=== PATIENT | female | born 1995 | race Caucasian/White ===

== ENCOUNTER 2020-01-08 15:08 | Emergency (ER) | payer OTHER, MEDICAID, SELFPAY ==
[2020-01-08] VITALS (9 sets, daily range): BP systolic 100–140; BP diastolic 60–82; PULSE 54–138; RESP 16–18; TEMP 36.8–36.9; O2SAT 98–100; BMI 28.3
[2020-01-08 15:50] LABS: Add Manual Diff / Slide Review NO; Basophils Absolute Auto 100 /uL (0-100); Eosinophils Absolute Auto 100 /uL (0-450); Hematocrit 42.5 % (36-46); Hemoglobin 14.2 g/dL (12.0-16.0); Lymphocytes Absolute Auto 2400 /uL (1100-4500); Lymphocytes Percent Auto 34.1 % (25-40); Mean Corpuscular HGB Conc 33.4 % (30-36); Mean Corpuscular Hemoglobin 29.5 PG (26-34); Mean Corpuscular Volume 88.3 fL (80-100); Monocytes Absolute Auto 500 /uL (0-900); Monocytes Percent Auto 6.5 % (3-14); Neutrophils Absolute Auto 4100 /uL (1500-7000); Neutrophils Percent Auto 57.4 % (50-75); Platelet Count 243 X10^3/uL (150-400); Red Blood Cell Count 4.81 X10^6/uL (4.0-5.2); Red Cell Distribution Width 12.7 % (11.6-14.8); White Blood Cell Count 7.1 X10^3/uL (4.5-11.0)
[2020-01-08 16:01] LABS: Prothrombin Time 11.2 SECONDS (10.1-12.7)
[2020-01-08 16:04] LABS: PTT Partial Thromboplastin Tim 20 SECONDS (26.4-36.2)
[2020-01-08 16:06] LABS: Alanine Aminotransferase 20 IU/L (<35); Albumin 4.7 g/dL (3.5-5.0); Albumin Globulin Ratio 1.5 (1.0-2.8); Alkaline Phosphatase 29 U/L (38-126); Aspartate Aminotransferase 38 IU/L (14-36); BUN Creatinine Ratio 16.7 (6-22); Bilirubin Total 0.7 mg/dL (0.2-1.3); Blood Urea Nitrogen 13 mg/dL (7-17); Calcium 9.5 mg/dL (8.4-10.2); Carbon Dioxide 26 mmol/L (22-32); Chloride 106 mmol/L (98-107); Estimated Glomerular Filt Rate > 60.0 mL/min (>60); Globulin 3.2 g/dL (1.7-4.1); Glucose 96 mg/dL (70-100); Lipase 118 U/L (23-300); Potassium 4.2 mmol/L (3.4-5.1); Sodium 138 mmol/L (137-145); Total Protein 7.9 g/dL (6.3-8.2)
[2020-01-08 16:07] LABS: HEMOLYSIS 109 (0-50)
[2020-01-08 16:09] LABS: Lactate (Lactic Acid) 1.2 mmol/L (0.7-2.1)
[2020-01-08 16:21] LABS: Procalcitonin < 0.05 ng/mL (<0.5)
--- NOTE | 2020-01-08 16:27 | DI.CT.S_ITS ---
PROCEDURE: CT FACIAL BONES W CON INDICATIONS: post dental surg, pain, swelling TECHNIQUE: After the administration of intravenous contrast, 2.5 mm axial sections acquired from the mid-neck to the frontal sinuses, with coronal and sagittal reformats. For radiation dose reduction, the following was used: automated exposure control, adjustment of mA and/or kV according to patient size. COMPARISON: None. FINDINGS: Image quality: Moderately degraded by patient motion on multiple slices. Soft tissues: No edema, masses, or fluid collections. No enlarged lymph nodes. Vascular: Visualized vascular structures appear patent throughout. Bony vascular foramina and canals appear normal. Bones: The left mandibular 1st and 3rd molars are absent. The right mandibular 3rd molar is mildly impacted. The remainder of the teeth appear normal without periapical lucencies. Additionally, the Facial bones appear intact, without fractures, erosions, or destruction. Visualized portions of the skull base and auditory canals also appear normal. Reversal of the normal cervical lordosis is nonspecific and may be related to positioning. Sinuses: A small mucous retention cyst is seen in the left maxillary sinus. The included paranasal sinuses are otherwise clear. The mastoid air cells are clear. IMPRESSION: The left mandibular 1st and 3rd mandibular molars are absent, which may be related to the reported recent dental surgery. No significant soft tissue edema or abscess is seen. Dictated by: Alex Jones M.D. on 01/08/2020 at 17:25 Approved by: Alex Jones M.D. on 01/08/2020 at 17:32
[2020-01-08] MEDS: SODIUM CHLORIDE 0.9% 1,000 ML 1000 ML IV (16:50)
[2020-01-08] MEDS: ONDANSETRON 4 MG/2 ML INJ IV (16:50)
[2020-01-08] MEDS: CLINDAMYCIN 150 MG CAPSULE 300 MG PO (17:50)
--- NOTE | 2020-01-08 17:52 | ED_ITS ---
HPI - Dental/Oral <SAMMY Bean-BC - Last Filed: 01/08/20 20:54> General Chief complaint: Dental/Oral Stated complaint: INFECTION AFTER TOOTH PULLED SWELLING OF LYMP NODE Time Seen by Provider: 01/08/20 15:59 Source: patient Mode of arrival: Ambulatory Limitations: no limitations History of Present Illness HPI Narrative: The patient is a 24-year-old female marijuana user who presents with a chief complaint of persistent dental pain despite antibiotics. She states that she had a wisdom tooth removed falls infected on December 03. She notes pain and swelling and was started on a 10 day course of amoxicillin on December 13. She presents with persistent pain and swelling down into her jaw, states she has decreased range of motion of her jaw. She states that the wisdom tooth was the lower left side. She occasionally feels nauseous with chills and fatigue. No overt fevers. She referred to her primary care provider as well as her dentist who referred her to the emergency department as they were concerned about an abscess. She presents to the emergency department tachycardic in the 130s Related Data Previous Rx's Medication Instructions Recorded norethindrone 1.5 mg-ethinyl See Rx Instructions .ROUTE 07/15/19 estradiol 30 mcg(21)/iron 75 mg(7) .COMPLEX #84 tab tablet clindamycin HCl 300 mg PO TID 7 Days #21 cap 01/08/20 Allergies Allergy/AdvReac Type Severity Reaction Status Date / Time No Known Drug Allergies Allergy Unverified 01/08/20 15:21 Review of Systems <SHELLY Bean - Last Filed: 01/08/20 20:54> Review of Systems Narrative: GENERAL: See HPI HEENT: See HPI RESPIRATORY: Denies dyspnea, cough, wheezing, hemoptysis, sputum. CARDIOVASCULAR: Denies chest pain, palpitations, orthopnea, edema, GASTROINTESTINAL: Denies nausea, vomiting, abdominal pain, diarrhea, constipation, melena. : Denies dysuria, frequency, incontinence, hematuria, urinary retention. MUSCULOSKELETAL: denies weakness, joint pain, or bony pain SKIN: Denies rash, skin lesions, or other NEUROLOGIC: Denies weakness, headache, numbness, change in speech, confusion, seizures, incoordination. PSYCHIATRIC: No concerning psychosocial issues. 12 point review of systems is negative except for those stated above Patient History <SAMMY Bean-BC - Last Filed: 01/08/20 20:54> Social History Smoking Status: Never smoker Smoking Status: Never smoker Substance Use Type: marijuana Exam <NATALIE Bean - Last Filed: 01/08/20 20:54> Narrative Exam Narrative: GENERAL: This is a well-nourished, well-developed patient, appears anxious HEAD: Atraumatic. Normocephalic. No temporal or scalp tenderness. EYES: Pupils equal round and reactive. Extraocular motions intact. No scleral icterus. No injection or drainage. ENT: Nose without bleeding, purulent drainage or septal hematoma. Throat without erythema, tonsillar hypertrophy or exudate. Uvula midline. Airway patent. Poor dentition noted. Swelling and erythema noted around left lower posterior molar. No palpable abscess. NECK: Trachea midline. No JVD or lymphadenopathy. Supple, nontender, no me ningeal signs. CARDIOVASCULAR: Regular rate and rhythm RESPIRATORY: Clear to auscultation. Breath sounds equal bilaterally. No wheezes, rales, or rhonchi. No cough. No increased respiratory effort. No accessory muscle use. GASTROINTESTINAL: Abdomen soft, non-tender, nondistended. No hepato-spleno megaly, or palpable masses. No guarding. EXTREMITIES: No clubbing, cyanosis, or edema. No joint tenderness, effusion, or edema noted. BACK: Nontender without deformity or crepitance. No flank tenderness. NEURO: AOx3. SKIN: No rash or erythema on visible skin Initial Vital Signs Initial Vital Signs: Vital Signs Temperature 98.5 F 01/08/20 15:15 Pulse Rate 138 H 01/08/20 15:15 Respiratory Rate 16 01/08/20 15:15 Blood Pressure 140/82 01/08/20 15:15 Pulse Oximetry 100 01/08/20 15:15 <Javier Frausto MD - Last Filed: 01/14/20 08:26> Initial Vital Signs Initial Vital Signs: Vital Signs Temperature 98.5 F 01/08/20 15:15 Pulse Rate 138 H 01/08/20 15:15 Respiratory Rate 16 01/08/20 15:15 Blood Pressure 140/82 01/08/20 15:15 Pulse Oximetry 100 01/08/20 15:15 Scores <SAMMY Bean-BC - Last Filed: 01/08/20 20:54> GCS [place] coma scale eye opening: Spontaneous [place] coma scale verbal response: Orientated [place] coma scale motor response: Obey commands [place] coma scale total score: 15 Course <SAMMY Bean-BC - Last Filed: 01/08/20 20:54> Orders Ordered: Discontinued Medications Clindamycin HCl (Cleocin) 300 mg PO NOW ONE Stop: 01/08/20 17:47 Last Admin: 01/08/20 17:50 Dose: 300 mg Documented by: MARIA ELENA Sodium Chloride (Normal Saline 0.9%) 1,000 mls @ 1,000 mls/hr IV BOLUS ONE Stop: 01/08/20 16:24 Last Infusion: 01/08/20 17:51 Dose: 0 mls/hr Documented by: MARIA ELENA Infusion: 01/08/20 17:30 Dose: 1,000 mls/hr Documented by: MARIA ELENA Admin: 01/08/20 16:50 Dose: 1,000 mls/hr Documented by: MARIA ELENA Ondansetron HCl (Zofran) 4 mg IV NOW ONE Stop: 01/08/20 16:28 Last Admin: 01/08/20 16:50 Dose: 4 mg Documented by: MARIA ELENA Vital Signs Vital signs: Vital Signs - 8 hr 01/08/20 15:15 01/08/20 15:42 01/08/20 15:43 Temperature 98.5 F Pulse Rate 138 H 54 L 54 L Respiratory Rate 16 Blood Pressure 140/82 Pulse Oximetry 100 100 98 01/08/20 15:51 01/08/20 16:00 01/08/20 16:30 Temperature Pulse Rate 75 81 64 Respiratory Rate Blood Pressure 100/60 105/65 108/62 Pulse Oximetry 100 100 100 01/08/20 17:00 01/08/20 17:30 01/08/20 18:09 Temperature 98.2 F Pulse Rate 75 87 86 Respiratory Rate 18 Blood Pressure 106/67 126/82 Pulse Oximetry 100 100 100 <Javier Frausto MD - Last Filed: 01/14/20 08:26> Orders Ordered: Discontinued Medications Clindamycin HCl (Cleocin) 300 mg PO NOW ONE Stop: 01/08/20 17:47 Last Admin: 01/08/20 17:50 Dose: 300 mg Documented by: MARIA ELENA Sodium Chloride (Normal Saline 0.9%) 1,000 mls @ 1,000 mls/hr IV BOLUS ONE Stop: 01/08/20 16:24 Last Infusion: 01/08/20 17:51 Dose: 0 mls/hr Documented by: MARIA ELENA Infusion: 01/08/20 17:30 Dose: 1,000 mls/hr Documented by: MARIA ELENA Admin: 01/08/20 16:50 Dose: 1,000 mls/hr Documented by: MARAI ELENA Ondansetron HCl (Zofran) 4 mg IV NOW ONE Stop: 01/08/20 16:28 Last Admin: 01/08/20 16:50 Dose: 4 mg Documented by: MARIA ELENA Vital Signs Vital signs: Vital Signs - 8 hr 01/08/20 15:15 01/08/20 15:42 01/08/20 15:43 Temperature 98.5 F Pulse Rate 138 H 54 L 54 L Respiratory Rate 16 Blood Pressure 140/82 Pulse Oximetry 100 100 98 01/08/20 15:51 01/08/20 16:00 01/08/20 16:30 Temperature Pulse Rate 75 81 64 Respiratory Rate Blood Pressure 100/60 105/65 108/62 Pulse Oximetry 100 100 100 01/08/20 17:00 01/08/20 17:30 01/08/20 18:09 Temperature 98.2 F Pulse Rate 75 87 86 Respiratory Rate 18 Blood Pressure 106/67 126/82 Pulse Oximetry 100 100 100 MDM - Dental/Oral <SAMMY Bean- - Last Filed: 01/08/20 20:54> Lab Data Result diagrams: 01/08/20 15:40 01/08/20 15:40 Labs: Lab Results 01/08/20 01/08/20 01/08/20 Range/Units 15:40 15:40 15:40 WBC 7.1 (4.5-11.0) X10^3/uL RBC 4.81 (4.0-5.2) X10^6/uL Hgb 14.2 (12.0-16.0) g/dL Hct 42.5 (36-46) % MCV 88.3 (80-100) fL MCH 29.5 (26-34) PG MCHC 33.4 (30-36) % RDW 12.7 (11.6-14.8) % Plt Count 243 (150-400) X10^3/uL Neut % (Auto) 57.4 (50-75) % Lymph % (Auto) 34.1 (25-40) % [place] % (Auto) 6.5 (3-14) % Eos % (Auto) 1.0 L (2-4) % Baso % (Auto) 1.0 (0-2) % Neut # (Auto) 4100 (4638-8990) /uL Lymph # (Auto) 2400 (1961-3446) /uL [place] # (Auto) 500 (0-900) /uL Eos # (Auto) 100 (0-450) /uL Baso # (Auto) 100 (0-100) /uL PT 11.2 (10.1-12.7) SECONDS INR 1.0 (0.9-1.3) APTT 20 L (26.4-36.2) SECONDS Sodium (137-145) mmol/L Potassium (3.4-5.1) mmol/L Chloride (98-107) mmol/L Carbon Dioxide (22-32) mmol/L BUN (7-17) mg/dL Creatinine (0.52-1.04) mg/dL Estimated GFR (>60) mL/min BUN/Creatinine Ratio (6-22) Glucose (70-100) mg/dL Lactate (0.7-2.1) mmol/L Calcium (8.4-10.2) mg/dL Total Bilirubin (0.2-1.3) mg/dL AST (14-36) IU/L ALT (<35) IU/L Alkaline Phosphatase (38-126) U/L Total Protein (6.3-8.2) g/dL Albumin (3.5-5.0) g/dL Globulin (1.7-4.1) g/dL Albumin/Globulin Ratio (1.0-2.8) Lipase (23-300) U/L Procalcitonin < 0.05 (<0.5) ng/mL 01/08/20 01/08/20 Range/Units 15:40 15:40 WBC (4.5-11.0) X10^3/uL RBC (4.0-5.2) X10^6/uL Hgb (12.0-16.0) g/dL Hct (36-46) % MCV (80-100) fL MCH (26-34) PG MCHC (30-36) % RDW (11.6-14.8) % Plt Count (150-400) X10^3/uL Neut % (Auto) (50-75) % Lymph % (Auto) (25-40) % [place] % (Auto) (3-14) % Eos % (Auto) (2-4) % Baso % (Auto) (0-2) % Neut # (Auto) (5552-0585) /uL Lymph # (Auto) (0956-0453) /uL [place] # (Auto) (0-900) /uL Eos # (Auto) (0-450) /uL Baso # (Auto) (0-100) /uL PT (10.1-12.7) SECONDS INR (0.9-1.3) APTT (26.4-36.2) SECONDS Sodium 138 (137-145) mmol/L Potassium 4.2 (3.4-5.1) mmol/L Chloride 106 (98-107) mmol/L Carbon Dioxide 26 (22-32) mmol/L BUN 13 (7-17) mg/dL Creatinine 0.78 (0.52-1.04) mg/dL Estimated GFR > 60.0 (>60) mL/min BUN/Creatinine Ratio 16.7 (6-22) Glucose 96 (70-100) mg/dL Lactate 1.2 (0.7-2.1) mmol/L Calcium 9.5 (8.4-10.2) mg/dL Total Bilirubin 0.7 (0.2-1.3) mg/dL AST 38 H (14-36) IU/L ALT 20 (<35) IU/L Alkaline Phosphatase 29 L (38-126) U/L Total Protein 7.9 (6.3-8.2) g/dL Albumin 4.7 (3.5-5.0) g/dL Globulin 3.2 (1.7-4.1) g/dL Albumin/Globulin Ratio 1.5 (1.0-2.8) Lipase 118 (23-300) U/L Procalcitonin (<0.5) ng/mL Point of Care Testing Test Results Negative Urine Dip Bedside Urine Glucose Negative Bedside Urine Bilirubin - Negative Bedside Urine Ketone - Negative Urine Specific [place] 1.010 Bedside Urine Occult Blood - Negative Bedside Urine pH 8.0 Bedside Urine Protein - Negative Bedside Urine Urobilinogen - Negative Bedside Urine Nitrite - Negative Bedside Urine Leukocytes - Negative Esterase Imaging Data Face CT: Radiologist's Impression: [address] [place] [id number] Scan Report Signed Patient: Fabiola Barron JMR#: [id number] : 1995Acct:[id number] Age/Sex: 24 / FDate of Service: 01/08/20 Loc: ED Accession Number: [id number] Procedure: CT facial bones w con Ordering Provider: Lisa Ervin-DAVID PROCEDURE: CT FACIAL BONES W CON INDICATIONS: post dental surg, pain, swelling TECHNIQUE: After the administration of intravenous contrast, 2.5 mm axial sections acquired from the mid-neck to the frontal sinuses, with coronal and sagittal reformats. For radiation dose reduction, the following was used: automated exposure control, adjustment of mA and/or kV according to patient size. COMPARISON: None. FINDINGS: Image quality: Moderately degraded by patient motion on multiple slices. Soft tissues: No edema, masses, or fluid collections. No enlarged lymph nodes. Vascular: Visualized vascular structures appear patent throughout. Bony vascular foramina and canals appear normal. Bones: The left mandibular 1st and 3rd molars are absent. The right mandibular 3rd molar is mildly impacted. The remainder of the teeth appear normal without periapical lucencies. Additionally, the Facial bones appear intact, without fractures, erosions, or destruction. Visualized portions of the skull base and auditory canals also appear normal. Reversal of the normal cervical lordosis is nonspecific and may be related to positioning. Sinuses: A small mucous retention cyst is seen in the left maxillary sinus. The included paranasal sinuses are otherwise clear. The mastoid air cells are clear. IMPRESSION: The left mandibular 1st and 3rd mandibular molars are absent, which may be related to the reported recent dental surgery. No significant soft tissue edema or abscess is seen. Dictated by: Alex Jones M.D. on 01/08/2020 at 17:25 Approved by: Alex Jones M.D. on 01/08/2020 at 17:32 [facility] Narrative Medical decision making narrative: The patient is a 24-year-old female who presents with a chief complaint of a possible abscess after having a tooth pulled periods no evidence of abscess on CT scan. Will place patient on clindamycin for dental infection as she has been on amoxicillin prior. She is initially tachycardic in the 130s, though her heart rate quickly recovers under lab work is overall very reassuring with no leukocytosis elevated procalcitonin or lactate. I did discuss at length the importance of follow-up with her dental provider as well as her primary care provider, as well as coming back to the emergency department for any acute concerns such as inability keep down food or fluids etcetera. Patient has no questions or concerns upon discharge and states understanding return precautions as well as follow-up care. She is able to tolerate her 1st dose of oral antibiotics in the emergency department. <Javier Frausto MD - Last Filed: 01/14/20 08:26> Lab Data Labs: Lab Results 01/08/20 01/08/20 01/08/20 Range/Units 15:40 15:40 15:40 WBC 7.1 (4.5-11.0) X10^3/uL RBC 4.81 (4.0-5.2) X10^6/uL Hgb 14.2 (12.0-16.0) g/dL Hct 42.5 (36-46) % MCV 88.3 (80-100) fL MCH 29.5 (26-34) PG MCHC 33.4 (30-36) % RDW 12.7 (11.6-14.8) % Plt Count 243 (150-400) X10^3/uL Neut % (Auto) 57.4 (50-75) % Lymph % (Auto) 34.1 (25-40) % [place] % (Auto) 6.5 (3-14) % Eos % (Auto) 1.0 L (2-4) % Baso % (Auto) 1.0 (0-2) % Neut # (Auto) 4100 (0495-6670) /uL Lymph # (Auto) 2400 (9277-3750) /uL [place] # (Auto) 500 (0-900) /uL Eos # (Auto) 100 (0-450) /uL Baso # (Auto) 100 (0-100) /uL PT 11.2 (10.1-12.7) SECONDS INR 1.0 (0.9-1.3) APTT 20 L (26.4-36.2) SECONDS Sodium (137-145) mmol/L Potassium (3.4-5.1) mmol/L Chloride (98-107) mmol/L Carbon Dioxide (22-32) mmol/L BUN (7-17) mg/dL Creatinine (0.52-1.04) mg/dL Estimated GFR (>60) mL/min BUN/Creatinine Ratio (6-22) Glucose (70-100) mg/dL Lactate (0.7-2.1) mmol/L Calcium (8.4-10.2) mg/dL Total Bilirubin (0.2-1.3) mg/dL AST (14-36) IU/L ALT (<35) IU/L Alkaline Phosphatase (38-126) U/L Total Protein (6.3-8.2) g/dL Albumin (3.5-5.0) g/dL Globulin (1.7-4.1) g/dL Albumin/Globulin Ratio (1.0-2.8) Lipase (23-300) U/L Procalcitonin < 0.05 (<0.5) ng/mL 01/08/20 01/08/20 Range/Units 15:40 15:40 WBC (4.5-11.0) X10^3/uL RBC (4.0-5.2) X10^6/uL Hgb (12.0-16.0) g/dL Hct (36-46) % MCV (80-100) fL MCH (26-34) PG MCHC (30-36) % RDW (11.6-14.8) % Plt Count (150-400) X10^3/uL Neut % (Auto) (50-75) % Lymph % (Auto) (25-40) % [place] % (Auto) (3-14) % Eos % (Auto) (2-4) % Baso % (Auto) (0-2) % Neut # (Auto) (2622-4005) /uL Lymph # (Auto) (6033-1852) /uL [place] # (Auto) (0-900) /uL Eos # (Auto) (0-450) /uL Baso # (Auto) (0-100) /uL PT (10.1-12.7) SECONDS INR (0.9-1.3) APTT (26.4-36.2) SECONDS Sodium 138 (137-145) mmol/L Potassium 4.2 (3.4-5.1) mmol/L Chloride 106 (98-107) mmol/L Carbon Dioxide 26 (22-32) mmol/L BUN 13 (7-17) mg/dL Creatinine 0.78 (0.52-1.04) mg/dL Estimated GFR > 60.0 (>60) mL/min BUN/Creatinine Ratio 16.7 (6-22) Glucose 96 (70-100) mg/dL Lactate 1.2 (0.7-2.1) mmol/L Calcium 9.5 (8.4-10.2) mg/dL Total Bilirubin 0.7 (0.2-1.3) mg/dL AST 38 H (14-36) IU/L ALT 20 (<35) IU/L Alkaline Phosphatase 29 L (38-126) U/L Total Protein 7.9 (6.3-8.2) g/dL Albumin 4.7 (3.5-5.0) g/dL Globulin 3.2 (1.7-4.1) g/dL Albumin/Globulin Ratio 1.5 (1.0-2.8) Lipase 118 (23-300) U/L Procalcitonin (<0.5) ng/mL Point of Care Testing Test Results Negative Urine Dip Bedside Urine Glucose Negative Bedside Urine Bilirubin - Negative Bedside Urine Ketone - Negative Urine Specific [place] 1.010 Bedside Urine Occult Blood - Negative Bedside Urine pH 8.0 Bedside Urine Protein - Negative Bedside Urine Urobilinogen - Negative Bedside Urine Nitrite - Negative Bedside Urine Leukocytes - Negative Esterase Discharge Plan Departure Patient Disposition: Home Clinical Impression: Dental infection Discharge Date/Time: 01/08/20 18:10 Instructions: Tooth Abscess Activity Restrictions/Additional Instructions: Thank you for trusting us with your care today Today your CT shows no evidence of postoperative abscess, which is very reassuring. I sent in a different antibiotic to [place] pharmacy. Please take this with probiotic or yogurt as this antibiotic can be associated with antibiotic associated diarrhea. As discussed, please follow-up with your primary care provider as well as her dentist in the next few days. Please come back to emergency department for any acute concerns such as inability keep down fluids. Prescriptions: New clindamycin HCl 300 mg capsule 300 mg PO TID 7 Days Qty: 21 RF: 0 No Action norethindrone-e.estradiol-iron [[place] 1.5/30 (28)] 1.5 mg-30 mcg (21)/75 mg (7) tablet See Rx Instructions .ROUTE .COMPLEX Qty: 84 RF: 2 Referrals: Tae Tim MD [Non-Staff] -
== END 2020-01-08 18:10 | disposition home or self-care (01) ==
PROVIDERS: Emergency Medicine; Emergency Provider Nurse Practitioner Family
DX: K04.7 Periapical abscess without sinus (principal); R00.0 Tachycardia, unspecified
CPT/HCPCS: 36415; 70487; 80053; 81003; 81025; 83605; 83690; 84145; 85025; 85610; 85730; 87040; 96361; 96374; 99284; J2405; Q9967

== ENCOUNTER → 2021-05-10 11:42 | Outpatient (CLI) | payer OTHER, MEDICAID, SELFPAY | PROVIDERS: PCP Physician Assistant; Visit Provider Physician Assistant | DX: K21.9 Gastro-esophageal reflux disease without esophagitis (principal); R12 Heartburn | CPT/HCPCS: 83013 ==